=== PATIENT | female | born 1960 | race Caucasian/White ===

== ENCOUNTER 2019-03-17 06:19 | Day surgery (SDC) | payer OTHER ==
[2019-03-17] MEDS: SOD CHLORIDE 0.9% 1,000 ML IV (07:08)
[2019-03-17] MEDS: DICLOFENAC 0.1% 2.5 ML OPH OPER (07:09)
[2019-03-17] MEDS: TROPICAMIDE 1% 15 ML OPH OPER (07:09)
[2019-03-17] MEDS: MOXIFLOXACIN 0.5% 3 ML OPH OPER (07:09)
[2019-03-17] MEDS: CYCLOPENTOLATE/PHENYLEPH 2 ML OPH OPER (07:10)
[2019-03-17] MEDS ORDERED: GENTAMICIN 80 MG INJ (08:00)
[2019-03-17] MEDS ORDERED: EPINEPHrine 1 MG INJ (08:00)
[2019-03-17] MEDS: LIDOCAINE 4% (MPF) 5 ML INJ (08:49)
[2019-03-17] MEDS ORDERED: MIDAZOLAM 1 MG/ML 2 ML INJ (08:49)
[2019-03-17] MEDS: CEFAZOLIN 1 GM INJ (08:51)
[2019-03-17] MEDS: DEXAMETHASONE 4 MG/ML 1 ML INJ INJ (08:52)
[2019-03-17] MEDS: CARBACHOL 0.01% 1.5 ML OPH INJ (08:54)
[2019-03-17] MEDS ORDERED: LABETALOL HCL 20MG INJ IV (09:00)
[2019-03-17] MEDS ORDERED: ACETAMINOPHEN 500 MG TAB PO (09:00)
[2019-03-17] MEDS ORDERED: DIPHENHYDRAMINE 50 MG INJ IV (09:00)
[2019-03-17] MEDS ORDERED: ACETAMINOPHEN 325 MG TAB PO (09:00)
[2019-03-17] MEDS ORDERED: ALBUTEROL 0.083% (NEB) 2.5 MG/3 ML AMP HHN (09:00)
[2019-03-17] MEDS ORDERED: OXYCODONE/ACETAMINOPHEN (5/325) TAB PO (09:00)
[2019-03-17] MEDS ORDERED: hydrALAzine 20 MG INJ IV (09:00)
[2019-03-17] MEDS: ONDANSETRON 4 MG INJ IV (09:45)
[2019-03-17] MEDS: FENTAnyl 50 MCG/ML VIAL IV (09:46)
[2019-03-17] MEDS ORDERED: PROPOFOL 20 ML (10:02)
[2019-03-17] MEDS ORDERED: LIDOCAINE 2% (SDV) 5 ML INJ (10:02)
== END 2019-03-17 10:56 | disposition home or self-care (01) ==
LOC: SDS 06:19
DX: H25.11 Age-related nuclear cataract, right eye (principal); E11.9 Type 2 diabetes mellitus without complications; Z79.82 Long term (current) use of aspirin; Z79.84 Long term (current) use of oral hypoglycemic drugs
CPT/HCPCS: 66984; 82962